=== PATIENT | male | born 1950 | race Caucasian/White ===

== ENCOUNTER 2018-03-14 05:29 | Day surgery (SDC) | payer MEDICARE, OTHER, MEDICAID ==
[2018-03-14] MEDS ORDERED: BALANCED SALT SOLN 15 ML OPH IRRIG (07:00)
[2018-03-14] MEDS ORDERED: FENTAnyl 50 MCG/ML VIAL IV ×3 (07:30)
[2018-03-14] MEDS ORDERED: MIDAZOLAM 1 MG/ML 2 ML INJ IV (07:30)
[2018-03-14] MEDS ORDERED: LABETALOL HCL 20MG INJ IV (07:30)
[2018-03-14] MEDS ORDERED: HYDROmorphONE 1 MG/5 ML IV SYRINGE IV ×3 (07:30)
[2018-03-14] MEDS ORDERED: EPHEDrine SULFATE 50 MG/5 ML SYG IV (07:30)
[2018-03-14] MEDS ORDERED: METOCLOPRAMIDE 10 MG INJ IV (07:30)
[2018-03-14] MEDS ORDERED: MEPERIDINE 25 MG INJ IV (07:30)
[2018-03-14] MEDS ORDERED: ONDANSETRON 4 MG INJ IV ×2 (07:30→08:00)
[2018-03-14] MEDS ORDERED: hydrALAzine 20 MG INJ IV (07:30)
[2018-03-14] MEDS ORDERED: DIPHENHYDRAMINE 50 MG INJ IV (07:30)
[2018-03-14] MEDS ORDERED: LIDOCAINE 2% (SDV) 5 ML INJ (07:33)
[2018-03-14] MEDS ORDERED: ROCURONIUM 50 MG INJ (07:33)
[2018-03-14] MEDS ORDERED: SUCCINYLCHOLINE CHLORIDE 100 MG/5 ML SYG IV (07:33)
[2018-03-14] MEDS ORDERED: NEOSTIGMINE 3 MG/3 ML SYRINGE (07:33)
[2018-03-14] MEDS ORDERED: PROPOFOL 20 ML (07:33)
[2018-03-14] MEDS ORDERED: GLYCOPYRROLATE 0.4 MG INJ (07:33)
[2018-03-14] MEDS ORDERED: MEPERIDINE /PF (100 MG/2 ML) AMPULE (07:36)
[2018-03-14] MEDS ORDERED: HYDROCODONE/APAP (5/325) TAB PO (08:00)
[2018-03-14] MEDS ORDERED: morphine 2 MG INJ IV (08:00)
[2018-03-14] MEDS ORDERED: CEFAZOLIN 1 GM INJ (08:00)
[2018-03-14] MEDS: EPINEPHrine 0.1 MG/ML SYG (08:09)
[2018-03-14] MEDS ORDERED: NEOMYC/POLYMYX/BACIT 30 GM OINT (08:32)
[2018-03-14] MEDS ORDERED: EPHEDrine SULFATE 50 MG/5 ML SYG (08:42)
[2018-03-14] MEDS: BUPIVACAINE LIPOSOME/PF 266 MG/20 ML VIAL INFIL (08:51)
== END 2018-03-14 10:30 | disposition home or self-care (01) ==
LOC: SDS 05:29
DX: L71.1 Rhinophyma (principal); E78.5 Hyperlipidemia, unspecified
CPT/HCPCS: 30120; 88304